=== PATIENT | female | born 1970 | race Two or more races ===

== ENCOUNTER 2022-11-13 11:36 | Emergency (ER) | payer MEDICAID, OTHER ==
[~2022-11-13] VITALS: Ht 167.6 cm; Wt 66.4 kg
[2022-11-13 13:35] VITALS: BP 116/87
[2022-11-13 13:35] LABS: Urine Bacteria NONE SEEN /hpf (None Seen); Urine Blood 3+ /uL (Negative); Urine Specific Gravity 1.014 (1.001-1.035); Urine WBC 4 /hpf (0 - 5)
[2022-11-13] MEDS ORDERED: cefTRIAXone SOD 1,000 MG VL IM ONE (14:15)
[2022-11-13] MEDS ORDERED: ONDANSETRON ODT 4 MG TAB PO ONE (14:15)
[2022-11-13] MEDS ORDERED: ACETAMINOPHEN 500 MG TAB PO ONE (14:15)
[2022-11-13] MEDS ORDERED: CEPH-510 PO (14:18)
[2022-11-13] MEDS ORDERED: ACET1CAP14 PO (14:18)
[2022-11-13] MEDS ORDERED: ONDA-144 PO (14:18)
== END 2022-11-13 14:45 | disposition home or self-care (01) ==
LOC: ER 11:36
DX: N39.0 Urinary tract infection, site not specified (principal); Z90.49 Acquired absence of other specified parts of digestive tract; Z79.899 Other long term (current) drug therapy; Z88.2 Allergy status to sulfonamides
CPT/HCPCS: 81001; 96372; 99283; J0696; Q0162

== ENCOUNTER 2023-01-03 05:57 | Emergency (ER) | payer MEDICAID ==
[~2023-01-03] VITALS: Ht 167.6 cm; Wt 64.0 kg
[~2023-01-03 05:57] MED LIST: ACET1CAP14 PO; CEPH-510 PO; ONDA-144 PO
[2023-01-03 06:20] VITALS: BP 131/94
[2023-01-03 07:09] LABS: Urine Bacteria NONE SEEN /hpf (None Seen); Urine Blood 3+ /uL (Negative); Urine Specific Gravity 1.025 (1.001-1.035); Urine WBC 457 /hpf (0 - 5); Urine WBC Clumps PRESENT /hpf (None Seen)
[2023-01-03] MEDS ORDERED: PROM1SOL4 PO (08:03)
[2023-01-03] MEDS ORDERED: CIPR-173 PO (08:03)
[2023-01-03] MEDS ORDERED: PHEN-922 PO (08:03)
== END 2023-01-03 08:20 | disposition home or self-care (01) ==
LOC: ER 05:57
DX: J20.9 Acute bronchitis, unspecified (principal); J02.9 Acute pharyngitis, unspecified; N39.0 Urinary tract infection, site not specified; Z20.822 Contact with and (suspected) exposure to COVID-19; Z90.49 Acquired absence of other specified parts of digestive tract
CPT/HCPCS: 36415; 71046; 81001; 87426; 87804